=== PATIENT | female | born 1990 | race Caucasian/White ===

== ENCOUNTER 2016-12-27 21:58 | Emergency (ER) | payer BC ==
[~2016-12-27] VITALS: Ht 172.7 cm; Wt 57.7 kg
[~2016-12-27 21:58] MED LIST: PREN1TAB60 PO
[2016-12-27] MEDS ORDERED: ONDANSETRON 2MG/ML, 2ML IVPush ONE (23:00)
[2016-12-27] MEDS ORDERED: SODIUM CHLORIDE 0.9% 1,000ML IVBOLUS ONE (23:00)
[2016-12-27 23:21] LABS: ASPARTATE AMINO TRANSFERASE 17 U/L (15-37); BLOOD UREA NITROGEN 8 mg/dL (7-18)
[2016-12-27] MEDS ORDERED: ONDANSETRON 2MG/ML, 2ML ONE (23:22)
[2016-12-28] MEDS ORDERED: ONDANSETRON 2MG/ML, 2ML IVPush ONE (00:30)
[2016-12-28] MEDS ORDERED: ONDANSETRON 2MG/ML, 2ML ONE (00:34)
[2016-12-28 00:40] VITALS: BP 122/64
== END 2016-12-28 00:43 | disposition home or self-care (01) ==
LOC: ED 23:16
DX: O26.891 Other specified pregnancy related conditions, first trimester (principal); Z3A.11 11 weeks gestation of pregnancy; R11.2 Nausea with vomiting, unspecified; Z88.1 Allergy status to other antibiotic agents
CPT/HCPCS: 36415; 80053; 81001; 83690; 85025; 96361; 96374; 96376; 99284; J2405; J7030

== ENCOUNTER → 2017-09-09 | Outpatient (CLI) | payer BC | END | disposition home or self-care (01) | LOC: CFH 13:01 | PROVIDERS: ATTEND Physician Assistant | DX: M54.5 Low back pain (principal); M79.605 Pain in left leg; M79.604 Pain in right leg; F41.9 Anxiety disorder, unspecified; K21.9 Gastro-esophageal reflux disease without esophagitis | CPT/HCPCS: 72148 ==

== ENCOUNTER → 2018-05-28 | Outpatient (CLI) | payer BC | END | disposition home or self-care (01) | LOC: CFH 09:05 | PROVIDERS: ATTEND Physician Assistant | DX: M25.569 Pain in unspecified knee (principal); M25.551 Pain in right hip; M25.552 Pain in left hip; R19.7 Diarrhea, unspecified; G43.909 Migraine, unspecified, not intractable, without status migrainosus; K21.9 Gastro-esophageal reflux disease without esophagitis; E55.9 Vitamin D deficiency, unspecified; J45.909 Unspecified asthma, uncomplicated; F41.9 Anxiety disorder, unspecified | CPT/HCPCS: 36415; 73523; 83516; 85651; 86038; 86140; 86160; 86200; 86225; 86235; 86255; 86256; 86376; 86430; 86431 ==

== ENCOUNTER 2019-02-02 17:12 | Outpatient (CLI) | payer BC | END 2019-02-02 23:59 | disposition home or self-care (01) | LOC: RAD 17:12 | PROVIDERS: ATTEND Physician Assistant | DX: M25.512 Pain in left shoulder (principal); J45.909 Unspecified asthma, uncomplicated ==

== ENCOUNTER 2019-03-25 14:28 | Outpatient (CLI) | payer BC | END 2019-03-25 23:59 | disposition home or self-care (01) | LOC: CFH 14:28 | PROVIDERS: ATTEND Physician Assistant | DX: R00.2 Palpitations (principal); S09.90XA Unspecified injury of head, initial encounter; X58.XXXA Exposure to other specified factors, initial encounter; Y93.89 Activity, other specified; Y92.89 Other specified places as the place of occurrence of the external cause; Y99.8 Other external cause status | CPT/HCPCS: 70450; 93306 ==

== ENCOUNTER → 2020-03-09 | Outpatient (CLI) | payer OTHER | END | disposition home or self-care (01) | LOC: CFH 11:24 | PROVIDERS: ATTEND Nurse Practitioner Primary Care | DX: S13.130A Subluxation of C2/C3 cervical vertebrae, initial encounter (principal); S13.140A Subluxation of C3/C4 cervical vertebrae, initial encounter; X58.XXXA Exposure to other specified factors, initial encounter; Y93.89 Activity, other specified; Y92.89 Other specified places as the place of occurrence of the external cause; Y99.8 Other external cause status | CPT/HCPCS: 72040 ==